=== PATIENT | female | born 1960 | race Caucasian/White ===

== ENCOUNTER → 2018-04-07 | Outpatient (CLI) | payer MEDICARE, OTHER ==
[2018-04-07 11:38] LABS: EOS # 0.1 (0.04-0.40); EOS % 1.5 % (1.0-5.0); HEMATOCRIT 46.2 % (37.0-47.0); HEMOGLOBIN 14.9 g/dL (12.5-16.0); LYMPH# 2.1 (1.50-4.00); MEAN CELL VOLUME 97 fl (78-100); MEAN CORPUSCULAR HEMOGLOBIN 31 pg (27-31); MEAN CORPUSCULAR HGB CONC 32 g/dL (33-37); MEAN PLATELET VOLUME 10.6 fl (7.4-10.4); MONO # 0.6 (0.20-0.80); NEU # 4.4 (1.40-6.50); PLATELET COUNT 214 K/mm3 (130-400); RED BLOOD COUNT 4.76 M/mm3 (4.10-5.30); WHITE BLOOD COUNT 7.2 K/mm3 (4.8-10.8)
[2018-04-07 11:50] LABS: ALBUMIN 4.5 g/dL (3.5-5.0); CALCIUM 9.4 mg/dL (8.4-10.2); POTASSIUM 3.5 mmol/L (3.6-5.0); TOTAL BILIRUBIN 0.6 mg/dL (0.2-1.3); TOTAL PROTEIN 7.2 g/dL (6.3-8.2)
== END ==
LOC: LAB 11:19
PROVIDERS: Family Medicine
DX: Z00.00 Encounter for general adult medical examination without abnormal findings (principal); E55.9 Vitamin D deficiency, unspecified; R73.9 Hyperglycemia, unspecified; E03.9 Hypothyroidism, unspecified

== ENCOUNTER → 2018-04-25 | Outpatient (CLI) | payer MEDICARE, OTHER | LOC: MAMMO 10:45 | DX: Z12.31 Encounter for screening mammogram for malignant neoplasm of breast (principal) ==

== ENCOUNTER → 2018-05-16 | Outpatient (CLI) | payer MEDICARE, OTHER ==
[~2018-05-16] VITALS: Ht 162.6 cm; Wt 116.4 kg
[~2018-05-16] MED LIST: ASPIRIN ADULT L81 M3 PO; DITROPAN 5MG TAB5 MG PO; NORVASC 10MG10 MG PO; PRAVACHOL 40MG40 MG PO; SYNTHROID25 MCG PO; TRIAMCINOLONE A15 G2 TP; ULTRAM50 M1 PO
[2018-05-16 11:45] LABS: URINE APPEARANCE CLOUDY; URINE COLOR YELLOW
[2018-05-16 11:46] LABS: PH-URINE 6.5 (5.0 - 8.0); URINE BILIRUBIN NEGATIVE (NEGATIVE); URINE BLOOD TRACE (NEGATIVE); URINE GLUCOSE NEGATIVE (NEGATIVE); URINE KETONE NEGATIVE (NEGATIVE); URINE LEUKOCYTE ESTERASE NEGATIVE (NEGATIVE); URINE MUCUS PRESENT (NOT PRESENT); URINE NITRATE NEGATIVE (NEGATIVE); URINE PROTEIN(semi-quant) TRACE mg/dL (NEGATIVE); URINE UROBILINOGEN NORMAL (NORMAL)
[2018-05-16 11:50] VITALS: BP 160/91
[2018-05-16 11:50] LABS: ALBUMIN 4.2 g/dL (3.5-5.0); CALCIUM 9.4 mg/dL (8.4-10.2); POTASSIUM 3.5 mmol/L (3.6-5.0); TOTAL BILIRUBIN 0.5 mg/dL (0.2-1.3)
[2018-05-16 11:51] LABS: EOS % 0.3 % (1.0-5.0); HEMATOCRIT 45.5 % (37.0-47.0); HEMOGLOBIN 14.4 g/dL (12.5-16.0); LYMPH# 1.7 (1.50-4.00); MEAN CELL VOLUME 97 fl (78-100); MEAN CORPUSCULAR HEMOGLOBIN 31 pg (27-31); MEAN CORPUSCULAR HGB CONC 32 g/dL (33-37); MEAN PLATELET VOLUME 10.9 fl (7.4-10.4); MONO # 0.6 (0.20-0.80); NEU # 7.6 (1.40-6.50); PLATELET COUNT 206 K/mm3 (130-400); RED BLOOD COUNT 4.67 M/mm3 (4.10-5.30); RED CELL DISTRIBUTION WIDTH 13.6 % (11.5-14.5); WHITE BLOOD COUNT 10.1 K/mm3 (4.8-10.8)
== END ==
LOC: AMSURD 10:58
PROVIDERS: Family Medicine
DX: Z01.818 Encounter for other preprocedural examination (principal)

== ENCOUNTER → 2019-01-31 | Outpatient (CLI) | payer MEDICARE, OTHER ==
[2018-05-16 11:50] VITALS: BP 160/91
== END ==
LOC: LAB 12:42
DX: L02.91 Cutaneous abscess, unspecified (principal)

== ENCOUNTER → 2019-03-20 | Outpatient (CLI) | payer MEDICARE, OTHER ==
[2018-05-16 11:50] VITALS: BP 160/91
== END ==
LOC: RAD 16:00
DX: R05 Cough (principal); R06.00 Dyspnea, unspecified

== ENCOUNTER → 2019-06-15 | Outpatient (CLI) | payer MEDICARE, OTHER ==
[2018-05-16 11:50] VITALS: BP 160/91
== END ==
LOC: MAMMO 05-15 10:00
DX: Z12.31 Encounter for screening mammogram for malignant neoplasm of breast (principal)

== ENCOUNTER → 2019-06-27 | Outpatient (CLI) | payer MEDICARE, OTHER ==
[2018-05-16 11:50] VITALS: BP 160/91
[2019-06-27 10:27] LABS: EOS # 0.3 (0.04-0.40); EOS % 3.3 % (1.0-5.0); HEMATOCRIT 46.9 % (37.0-47.0); HEMOGLOBIN 14.9 g/dL (12.5-16.0); LYMPH# 2.4 (1.50-4.00); MEAN CELL VOLUME 97 fl (78-100); MEAN CORPUSCULAR HEMOGLOBIN 31 pg (27-31); MEAN CORPUSCULAR HGB CONC 32 g/dL (33-37); MEAN PLATELET VOLUME 10.4 fl (7.4-10.4); MONO # 0.5 (0.20-0.80); NEU # 5.5 (1.40-6.50); PLATELET COUNT 258 K/mm3 (130-400); RED BLOOD COUNT 4.83 M/mm3 (4.10-5.30); RED CELL DISTRIBUTION WIDTH 14.2 % (11.5-14.5); WHITE BLOOD COUNT 8.8 K/mm3 (4.8-10.8)
[2019-06-27 10:29] LABS: ALBUMIN 4.1 g/dL (3.5-5.0); POTASSIUM 3.5 mmol/L (3.5-5.1)
[2019-06-27 10:30] LABS: CALCIUM 9.4 mg/dL (8.3-10.5)
[2019-06-27 10:32] LABS: TOTAL PROTEIN 6.4 g/dL (6.4-8.3)
[2019-06-27 10:34] LABS: TOTAL BILIRUBIN 0.4 mg/dL (0.2-1.2)
== END ==
LOC: LAB 10:06
PROVIDERS: Family Medicine
DX: Z00.00 Encounter for general adult medical examination without abnormal findings (principal); E78.00 Pure hypercholesterolemia, unspecified; E03.9 Hypothyroidism, unspecified; E55.9 Vitamin D deficiency, unspecified; R73.9 Hyperglycemia, unspecified

== ENCOUNTER → 2020-01-29 | Outpatient (CLI) | payer MEDICARE, OTHER ==
[2018-05-16 11:50] VITALS: BP 160/91
[2020-01-29 12:14] LABS: BASO # 0.1 (0.02-0.10); EOS # 0.4 (0.04-0.40); EOS % 4.8 % (1.0-5.0); HEMATOCRIT 48.6 % (37.0-47.0); HEMOGLOBIN 15.7 g/dL (12.5-16.0); LYMPH# 2.4 (1.50-4.00); MEAN CELL VOLUME 95 fl (78-100); MEAN CORPUSCULAR HEMOGLOBIN 31 pg (27-31); MEAN CORPUSCULAR HGB CONC 32 g/dL (33-37); MEAN PLATELET VOLUME 10.5 fl (7.4-10.4); MONO # 0.7 (0.20-0.80); NEU # 5.4 (1.40-6.50); PLATELET COUNT 237 K/mm3 (130-400); RED BLOOD COUNT 5.13 M/mm3 (4.10-5.30); RED CELL DISTRIBUTION WIDTH 14.1 % (11.5-14.5)
[2020-01-29 12:33] LABS: ALBUMIN 4.5 g/dL (3.5-5.0); POTASSIUM 3.5 mmol/L (3.5-5.1)
[2020-01-29 12:34] LABS: CALCIUM 9.4 mg/dL (8.3-10.5)
[2020-01-29 12:36] LABS: TOTAL PROTEIN 7.4 g/dL (6.4-8.3)
[2020-01-29 12:37] LABS: TOTAL BILIRUBIN 0.5 mg/dL (0.2-1.2)
[2020-01-29 13:36] LABS: ERYTHROCYTE SEDIMENTATION RATE 6 mm/hr (0-30)
[2020-01-30 12:30] LABS: ANA SCREEN with REFLEX Negative (Negative)
== END ==
LOC: LAB 11:57
PROVIDERS: Physician Assistant
DX: M25.50 Pain in unspecified joint (principal); I10 Essential (primary) hypertension; E03.9 Hypothyroidism, unspecified; L74.519 Primary focal hyperhidrosis, unspecified

== ENCOUNTER → 2020-11-05 | Outpatient (CLI) | payer MEDICARE, OTHER ==
[2020-11-05 12:00] LABS: BASO # 0.07 (0.02-0.10); EOS % 2.2 % (1.0-5.0); HEMATOCRIT 48.1 % (37.0-47.0); HEMOGLOBIN 15.4 g/dL (12.5-16.0); LYMPH# 2.17 (1.50-4.00); MEAN CELL VOLUME 98 fl (78-100); MEAN CORPUSCULAR HEMOGLOBIN 31 pg (27-31); MEAN CORPUSCULAR HGB CONC 32 g/dL (33-37); MEAN PLATELET VOLUME 10.5 fl (7.4-10.4); MONO # 0.87 (0.20-0.80); NEU # 5.85 (1.40-6.50); PLATELET COUNT 244 K/mm3 (130-400); RED BLOOD COUNT 4.93 M/mm3 (4.10-5.30); RED CELL DISTRIBUTION WIDTH 13.7 % (11.5-14.5); WHITE BLOOD COUNT 9.2 K/mm3 (4.8-10.8)
[2020-11-05 12:02] LABS: ALBUMIN 4.4 g/dL (3.4-4.8); POTASSIUM 3.8 mmol/L (3.5-5.1)
[2020-11-05 12:04] LABS: CALCIUM 9.9 mg/dL (8.3-10.5)
[2020-11-05 12:05] LABS: TOTAL PROTEIN 7.5 g/dL (6.2-8.1)
[2020-11-05 12:07] LABS: TOTAL BILIRUBIN 0.6 mg/dL (0.2-1.2)
== END ==
LOC: LAB 11:03
PROVIDERS: Family Medicine
DX: Z00.00 Encounter for general adult medical examination without abnormal findings (principal); E07.9 Disorder of thyroid, unspecified; E78.00 Pure hypercholesterolemia, unspecified

== ENCOUNTER → 2021-08-12 | Outpatient (CLI) | payer MEDICARE, OTHER ==
[2021-08-12 10:51] LABS: BASO # 0.04 K/mm3 (0.02-0.10); EOS # 0.14 K/mm3 (0.04-0.40); EOS % 1.8 % (1.0-5.0); HEMATOCRIT 48.2 % (37.0-47.0); HEMOGLOBIN 15.1 g/dL (12.5-16.0); LYMPH# 2.17 K/mm3 (1.50-4.00); MEAN CELL VOLUME 99 fl (78-100); MEAN CORPUSCULAR HEMOGLOBIN 31 pg (27-31); MEAN CORPUSCULAR HGB CONC 31 g/dL (33-37); MEAN PLATELET VOLUME 10.1 fl (7.4-10.4); MONO # 0.58 K/mm3 (0.20-0.80); NEU # 5.02 K/mm3 (1.40-6.50); PLATELET COUNT 209 K/mm3 (130-400); RED BLOOD COUNT 4.89 M/mm3 (4.10-5.30); RED CELL DISTRIBUTION WIDTH 13.6 % (11.5-14.5)
[2021-08-12 11:07] LABS: ALBUMIN 4.2 g/dL (3.4-4.8); POTASSIUM 4.2 mmol/L (3.5-5.1)
[2021-08-12 11:09] LABS: CALCIUM 9.6 mg/dL (8.3-10.5)
[2021-08-12 11:10] LABS: TOTAL PROTEIN 7.2 g/dL (6.2-8.1)
[2021-08-12 11:12] LABS: TOTAL BILIRUBIN 0.6 mg/dL (0.2-1.2)
[2021-08-12 11:16] LABS: D-DIMER 0.75 mg/L FEU (0.15-0.50)
== END ==
LOC: LAB 10:31
PROVIDERS: Family Medicine
DX: Z00.00 Encounter for general adult medical examination without abnormal findings (principal); R06.00 Dyspnea, unspecified; M19.90 Unspecified osteoarthritis, unspecified site; M50.30 Other cervical disc degeneration, unspecified cervical region; E07.9 Disorder of thyroid, unspecified; F41.1 Generalized anxiety disorder; I10 Essential (primary) hypertension; N39.46 Mixed incontinence; E66.01 Morbid (severe) obesity due to excess calories; M17.9 Osteoarthritis of knee, unspecified; M48.02 Spinal stenosis, cervical region; M10.9 Gout, unspecified; L71.9 Rosacea, unspecified; G47.33 Obstructive sleep apnea (adult) (pediatric); R61 Generalized hyperhidrosis

== ENCOUNTER → 2021-08-28 | Outpatient (CLI) | payer MEDICARE | LOC: RAD 09:00 | DX: K76.0 Fatty (change of) liver, not elsewhere classified (principal); K80.80 Other cholelithiasis without obstruction; R06.00 Dyspnea, unspecified | CPT/HCPCS: Q9967 ==

== ENCOUNTER → 2022-02-02 | Outpatient (CLI) | payer MEDICARE, OTHER ==
[2022-02-02 12:42] LABS: BASO # 0.04 K/mm3 (0.02-0.10); EOS # 0.05 K/mm3 (0.04-0.40); EOS % 0.6 % (1.0-5.0); HEMATOCRIT 49.1 % (37.0-47.0); HEMOGLOBIN 16.1 g/dL (12.5-16.0); LYMPH# 2.11 K/mm3 (1.50-4.00); MEAN CELL VOLUME 94 fl (78-100); MEAN CORPUSCULAR HEMOGLOBIN 31 pg (27-31); MEAN CORPUSCULAR HGB CONC 33 g/dL (33-37); MEAN PLATELET VOLUME 10.8 fl (7.4-10.4); MONO # 0.51 K/mm3 (0.20-0.80); NEU # 5.29 K/mm3 (1.40-6.50); PLATELET COUNT 204 K/mm3 (130-400); RED BLOOD COUNT 5.22 M/mm3 (4.10-5.30); RED CELL DISTRIBUTION WIDTH 12.3 % (11.5-14.5)
[2022-02-02 13:54] LABS: ERYTHROCYTE SEDIMENTATION RATE 11 mm/hr (0-30)
== END ==
LOC: LAB 12:20
PROVIDERS: Family Medicine
DX: Z12.39 Encounter for other screening for malignant neoplasm of breast (principal); M50.30 Other cervical disc degeneration, unspecified cervical region; M48.02 Spinal stenosis, cervical region; I10 Essential (primary) hypertension; E78.00 Pure hypercholesterolemia, unspecified; R73.9 Hyperglycemia, unspecified; R53.83 Other fatigue; M19.90 Unspecified osteoarthritis, unspecified site; E07.9 Disorder of thyroid, unspecified; F41.1 Generalized anxiety disorder; M10.9 Gout, unspecified; N39.46 Mixed incontinence; E66.01 Morbid (severe) obesity due to excess calories; M17.9 Osteoarthritis of knee, unspecified; L40.9 Psoriasis, unspecified; L73.2 Hidradenitis suppurativa

== ENCOUNTER → 2023-08-01 | Outpatient (CLI) | payer MEDICARE, OTHER | LOC: LAB 16:31 | DX: E11.9 Type 2 diabetes mellitus without complications (principal) ==

== ENCOUNTER → 2023-11-07 | Outpatient (CLI) | payer MEDICARE, OTHER ==
[2023-11-07 11:08] LABS: BASO # 0.05 K/mm3 (0.02-0.10); EOS # 0.15 K/mm3 (0.04-0.40); EOS % 1.7 % (1.0-5.0); HEMATOCRIT 47.7 % (37.0-47.0); HEMOGLOBIN 15.3 g/dL (12.5-16.0); LYMPH# 2.46 K/mm3 (1.50-4.00); MEAN CELL VOLUME 100 fl (78-100); MEAN CORPUSCULAR HEMOGLOBIN 32 pg (27-31); MEAN CORPUSCULAR HGB CONC 32 g/dL (33-37); MEAN PLATELET VOLUME 10.6 fl (7.4-10.4); MONO # 0.55 K/mm3 (0.20-0.80); NEU # 5.45 K/mm3 (1.40-6.50); PLATELET COUNT 209 K/mm3 (130-400); RED BLOOD COUNT 4.79 M/mm3 (4.10-5.30); RED CELL DISTRIBUTION WIDTH 13.7 % (11.5-14.5); WHITE BLOOD COUNT 8.7 K/mm3 (4.8-10.8)
[2023-11-07 11:10] LABS: ALBUMIN 4.6 g/dL (3.4-4.8)
[2023-11-07 11:11] LABS: CALCIUM 10.5 mg/dL (8.3-10.5)
[2023-11-07 11:12] LABS: TOTAL PROTEIN 7.5 g/dL (6.2-8.1)
[2023-11-07 11:14] LABS: TOTAL BILIRUBIN 0.5 mg/dL (0.2-1.2)
== END ==
LOC: LAB 10:51
PROVIDERS: Family Medicine
DX: E07.9 Disorder of thyroid, unspecified (principal); E78.00 Pure hypercholesterolemia, unspecified; I10 Essential (primary) hypertension; E11.9 Type 2 diabetes mellitus without complications; E55.9 Vitamin D deficiency, unspecified; M10.9 Gout, unspecified

== ENCOUNTER 2024-04-16 08:39 | Emergency (ER) | payer MEDICARE, OTHER ==
[~2024-04-16] VITALS: Ht 162.6 cm; Wt 78.2 kg
[~2024-04-16 08:39] MED LIST changes: -ALLOPURINOL300 M1 PO; -CLONAZEPAM0.5 M1 PO; -DEXCOM G61 EACH MC; -HYDROCHLOROTH12.5 M1 PO; -MELOXICAM15 MG PO; -MOUNJARO15 MG/0.5 SQ; -PAXLOVID 150-11 EAC1 PO; -PRILOSEC 20MG20 MG PO
[2024-04-16] MEDS ORDERED: MOUNJARO15 MG/0.5 SQ (08:51)
[2024-04-16] MEDS ORDERED: HYDROCHLOROTH12.5 M1 PO (08:52)
[2024-04-16] MEDS ORDERED: CLONAZEPAM0.5 M1 PO (08:52)
[2024-04-16] MEDS ORDERED: DEXCOM G61 EACH MC (08:53)
[2024-04-16] MEDS ORDERED: PRILOSEC 20MG20 MG PO (08:53)
[2024-04-16] MEDS ORDERED: ALLOPURINOL300 M1 PO (08:53)
[2024-04-16] MEDS ORDERED: MELOXICAM15 MG PO (08:54)
[2024-04-16] MEDS ORDERED: PAXLOVID 150-11 EAC1 PO (10:18)
[2024-04-16 10:30] VITALS: BP 127/75
== END 2024-04-16 10:30 | disposition home or self-care (01) ==
LOC: ED 08:39
DX: U07.1 COVID-19 (principal); R06.02 Shortness of breath; R53.83 Other fatigue; R05.9 Cough, unspecified

== ENCOUNTER → 2024-04-16 | Outpatient (CLI) | payer MEDICARE, OTHER ==
[~2024-04-16] MED LIST changes: +ALLOPURINOL300 M1 PO; +CLONAZEPAM0.5 M1 PO; +DEXCOM G61 EACH MC; +HYDROCHLOROTH12.5 M1 PO; +MELOXICAM15 MG PO; +MOUNJARO15 MG/0.5 SQ; +PAXLOVID 150-11 EAC1 PO; +PRILOSEC 20MG20 MG PO
[2024-04-16 10:42] LABS: BASO # 0.03 K/mm3 (0.02-0.10); EOS # 0.03 K/mm3 (0.04-0.40); EOS % 0.3 % (1.0-5.0); HEMATOCRIT 47.9 % (37.0-47.0); HEMOGLOBIN 16.2 g/dL (12.5-16.0); LYMPH# 2.19 K/mm3 (1.50-4.00); MEAN CELL VOLUME 94 fl (78-100); MEAN CORPUSCULAR HEMOGLOBIN 32 pg (27-31); MEAN CORPUSCULAR HGB CONC 34 g/dL (33-37); MEAN PLATELET VOLUME 10.6 fl (7.4-10.4); MONO # 0.59 K/mm3 (0.20-0.80); NEU # 6.66 K/mm3 (1.40-6.50); PLATELET COUNT 205 K/mm3 (130-400); RED BLOOD COUNT 5.12 M/mm3 (4.10-5.30); RED CELL DISTRIBUTION WIDTH 13.5 % (11.5-14.5); WHITE BLOOD COUNT 9.5 K/mm3 (4.8-10.8)
[2024-04-16 10:48] LABS: ALBUMIN 4.2 g/dL (3.4-4.8)
[2024-04-16 10:49] LABS: CALCIUM 10.3 mg/dL (8.3-10.5)
[2024-04-16 10:50] LABS: TOTAL PROTEIN 7.1 g/dL (6.2-8.1)
== END ==
LOC: LAB 10:32
PROVIDERS: Family Medicine
DX: E11.9 Type 2 diabetes mellitus without complications (principal); I10 Essential (primary) hypertension; E07.9 Disorder of thyroid, unspecified

== ENCOUNTER → 2024-06-14 | Outpatient (CLI) | payer MEDICARE, OTHER ==
[~2024-06-14] MED LIST changes: +ALLOPURINOL300 M1 PO; +CLONAZEPAM0.5 M1 PO; +DEXCOM G61 EACH MC; +HYDROCHLOROTH12.5 M1 PO; +MELOXICAM15 MG PO; +MOUNJARO15 MG/0.5 SQ; +PAXLOVID 150-11 EAC1 PO; +PRILOSEC 20MG20 MG PO
[2024-06-14 16:52] LABS: BASO # 0.04 K/mm3 (0.02-0.10); EOS # 0.18 K/mm3 (0.04-0.40); EOS % 1.8 % (1.0-5.0); HEMATOCRIT 43.8 % (37.0-47.0); HEMOGLOBIN 14.6 g/dL (12.5-16.0); LYMPH# 3.54 K/mm3 (1.50-4.00); MEAN CELL VOLUME 95 fl (78-100); MEAN CORPUSCULAR HEMOGLOBIN 32 pg (27-31); MEAN CORPUSCULAR HGB CONC 33 g/dL (33-37); MEAN PLATELET VOLUME 10.3 fl (7.4-10.4); NEU # 5.15 K/mm3 (1.40-6.50); PLATELET COUNT 236 K/mm3 (130-400); RED CELL DISTRIBUTION WIDTH 14.5 % (11.5-14.5); WHITE BLOOD COUNT 9.7 K/mm3 (4.8-10.8)
[2024-06-14 17:00] LABS: ALBUMIN 4.5 g/dL (3.4-4.8)
[2024-06-14 17:01] LABS: CALCIUM 10.8 mg/dL (8.3-10.5)
[2024-06-14 17:02] LABS: TOTAL PROTEIN 7.7 g/dL (6.2-8.1)
[2024-06-14 17:04] LABS: TOTAL BILIRUBIN 0.8 mg/dL (0.2-1.2)
== END ==
LOC: LAB 16:37
PROVIDERS: Nurse Practitioner
DX: E11.9 Type 2 diabetes mellitus without complications (principal)

== ENCOUNTER → 2024-07-10 | Outpatient (CLI) | payer MEDICARE, OTHER ==
[2024-07-10 11:16] LABS: ALBUMIN 4.4 g/dL (3.4-4.8)
[2024-07-10 11:19] LABS: TOTAL PROTEIN 7.4 g/dL (6.2-8.1)
[2024-07-10 11:21] LABS: TOTAL BILIRUBIN 0.6 mg/dL (0.2-1.2)
[2024-07-10 11:29] LABS: BASO # 0.04 K/mm3 (0.02-0.10); EOS # 0.07 K/mm3 (0.04-0.40); EOS % 0.9 % (1.0-5.0); HEMATOCRIT 42.1 % (37.0-47.0); HEMOGLOBIN 13.9 g/dL (12.5-16.0); MEAN CELL VOLUME 97 fl (78-100); MEAN CORPUSCULAR HEMOGLOBIN 32 pg (27-31); MEAN CORPUSCULAR HGB CONC 33 g/dL (33-37); MEAN PLATELET VOLUME 10.7 fl (7.4-10.4); NEU # 5.11 K/mm3 (1.40-6.50); PLATELET COUNT 235 K/mm3 (130-400); RED BLOOD COUNT 4.36 M/mm3 (4.10-5.30); RED CELL DISTRIBUTION WIDTH 14.9 % (11.5-14.5); WHITE BLOOD COUNT 7.5 K/mm3 (4.8-10.8)
== END ==
LOC: LAB 10:24
PROVIDERS: Family Medicine
DX: E07.9 Disorder of thyroid, unspecified (principal); M10.9 Gout, unspecified; I10 Essential (primary) hypertension; E11.9 Type 2 diabetes mellitus without complications

== ENCOUNTER → 2024-08-06 | Outpatient (CLI) | payer MEDICARE, OTHER | LOC: MAMMO 13:16 | DX: Z12.31 Encounter for screening mammogram for malignant neoplasm of breast (principal) ==